=== PATIENT | female | born 1970 | race Caucasian/White ===

== ENCOUNTER 2016-09-27 13:54 | Outpatient (RCR) | payer MEDICARE, MEDICAID ==
[~2016-09-27 13:54] MED LIST: CELEXA 20MG20 MG/TAB PO; CELEXA10 MG PO; CLEOCIN HC150 MG/CAP PO; COLACE 100100 MG/CAP PO; DEPAKOTE 250MG250 MG PO; DEPAKOTE ER 25250 MG PO; DILANTIN 100MG100 MG PO; LASIX 20MG TABL20 MG PO; LASIX 40MG TABL40 MG PO; NORCO 325 MG-51 TAB PO; NYSTATIN POWDER30 GM TOP; PREMARIN 0.60.625 MG PO; TYLENOL ARTHRI650 M1 PO; TYLENOL W/COD1 UDTAB PO; VESICARE10 MG PO
== END 2016-12-26 ==
LOC: MKS.ESL.PT
DX: R60.0 Localized edema (principal); Z87.2 Personal history of diseases of the skin and subcutaneous tissue
CPT/HCPCS: G8979-GP; G8990-GP

== ENCOUNTER 2019-06-03 10:00 | Outpatient (RCR) | payer MEDICARE, MEDICAID | END 2019-07-24 | disposition home or self-care (01) | LOC: MKS.ESL.PT | DX: L03.119 Cellulitis of unspecified part of limb (principal) ==

== ENCOUNTER 2020-02-03 10:48 | Emergency (ER) | payer MEDICARE, MEDICAID ==
[~2020-02-03] VITALS: Ht 170.2 cm; Wt 136.4 kg
[2020-02-03 10:52] VITALS: TEMP 97.8
[2020-02-03] MEDS ORDERED: KLOR-CON SPRINK8 MEQ PO (11:09)
[2020-02-03] MEDS ORDERED: VITAMINC250CH (11:10)
[2020-02-03] MEDS ORDERED: ZAROXOLYN5 MG PO (11:10)
[2020-02-03] MEDS ORDERED: VITAMIN D31000 I1 PO (11:10)
[2020-02-03] MEDS ORDERED: CELEXA10 MG PO (11:11)
[2020-02-03] MEDS ORDERED: SLOW FE142 MG PO (11:11)
[2020-02-03] MEDS ORDERED: ALDACTONE50 MG PO (11:12)
[2020-02-03] MEDS ORDERED: DEPAKOTE ER 25250 MG PO (11:12)
[2020-02-03] MEDS ORDERED: TYLENOL 325MG325 MG PO (11:13)
[2020-02-03] MEDS ORDERED: MYCOSTATIN100000 U/1 TP (11:13)
[2020-02-03] MEDS ORDERED: NORCO 325 MG-51 TAB PO (13:13)
[2020-02-03 13:30] VITALS: BP 124/71; PULSE 95
== END 2020-02-03 13:30 | disposition home or self-care (01) ==
LOC: COL.ER 10:48
DX: S92.402A Displaced unspecified fracture of left great toe, initial encounter for closed fracture (principal); S01.01XA Laceration without foreign body of scalp, initial encounter; S60.221A Contusion of right hand, initial encounter; R40.2410 Glasgow coma scale score 13-15, unspecified time; Z88.0 Allergy status to penicillin; V59.60XA Unspecified occupant of pick-up truck or van injured in collision with unspecified motor vehicles in traffic accident, initial encounter; Y92.410 Unspecified street and highway as the place of occurrence of the external cause
CPT/HCPCS: J2270; Q9967

== ENCOUNTER 2020-06-18 12:31 | Inpatient (IN) | payer MEDICARE, MEDICAID ==
[~2020-06-18] VITALS: Ht 170.2 cm; Wt 145.5 kg
[~2020-06-18 12:31] MED LIST changes: +ALDACTONE50 MG PO; +KLOR-CON SPRINK8 MEQ PO; +MYCOSTATIN100000 U/1 TP; +SLOW FE142 MG PO; +TYLENOL 325MG325 MG PO; +VITAMIN D31000 I1 PO; +VITAMINC250CH PO; +ZAROXOLYN5 MG PO
[2020-06-18 12:56] LABS: COLLECTION METHOD CATHETER
[2020-06-18 13:00] LABS: MUCOUS Present /lpf; PH 7 (5-8); SQUAMOUS EPITHELIAL 0-2 /hpf; URINE APPEARANCE Hazy; URINE BACTERIA Rare /hpf; URINE BILIRUBIN Negative (NEGATIVE); URINE BLOOD Negative (NEGATIVE); URINE COLOR Yellow; URINE GLUCOSE Negative (NEGATIVE); URINE KETONE 1+ (NEGATIVE); URINE LEUKOCYTE ESTERASE 1+ (NEGATIVE); URINE NITRATE Negative (NEGATIVE); URINE PROTEIN(semi-quant) Negative (NEGATIVE)
[2020-06-18 13:12] LABS: BASO % 0.3 % (0.0-2.0); EOS % 0.4 % (0-4.0); GRAN # 5.7 (1.4-6.5); GRAN % 79.3 % (42.2-75.2); HEMOGLOBIN 11.2 g/dl (12.5-16.0); LYMPH # 0.7 (1.2-3.4); LYMPH % 9.5 % (20.0-51.0); MEAN CELL VOLUME 92 fl (80.0-100.0); MEAN CORPUSCULAR HEMOGLOBIN 29 pg (27.0-31.0); MEAN CORPUSCULAR HGB CONC 32 g/dl (33.0-37.0); MEAN PLATELET VOLUME 10.7 fl (7.4-10.4); MONO # 0.7 (0.1-0.6); MONO % 10.1 % (1.7-9.3); PLATELET COUNT 277 K/mm3 (130-400); RED BLOOD COUNT 3.88 M/mm3 (4.10-5.30); REDCELL DISTRIBUTION WIDTH-CV 16.4 % (11.5-14.5)
[2020-06-18 13:16] LABS: HEMATOCRIT 35.5 % (37.0-47.0)
[2020-06-18 13:21] LABS: BLOOD UREA NITROGEN 26 mg/dL (7-17); CREATININE, serum 0.71 (0.52-1.25); GLUCOSE 106 mg/dL (74-106)
[2020-06-18 13:22] LABS: ALANINE AMINOTRANSFERASE 12 U/L (4-34); ALBUMIN 3.4 gm/dL (3.5-5.0); ALKALINE PHOSPHATASE 120 U/L (50-136); ANION GAP 12 mmol/L (7-16); AST,SGOT 24 U/L (15-37); BILIRUBIN,TOTAL 0.8 mg/dL (0.0-1.0); CALCIUM 9.1 mg/dL (8.4-10.2); CARBON DIOXIDE 26 mmol/L (22-30); CHLORIDE 101 mmol/L (98-107); SODIUM 138 mmol/L (137-145)
[2020-06-18 13:23] LABS: POTASSIUM 2.8 mmol/L (3.4-5.0)
[2020-06-18 13:34] LABS: TROPONIN-I < 0.012 ng/mL (0.000-0.035)
--- NOTE | 2020-06-18 14:50 | NUR ---
The patient's ED nurse contacted this [employer] regarding the patient. The patient was brought to the ED and found that the patient may have been sitting in her recliner for two weeks. Per nurse the patient's bottom was raw and had cellulitis, both feet were swollen and cold due to lack of circulation. BRANDI made APS report. Intake # [id number]
[2020-06-18] MEDS ORDERED: SYNTHROID 0.0.025 MG PO (15:33)
[2020-06-18] MEDS ORDERED: ALDACTONE 25MG25 M1 PO (15:34)
[2020-06-18] MEDS ORDERED: DITROPAN XL10 MG PO (15:34)
--- NOTE | 2020-06-18 15:34 | NUR ---
Peggy Arlene. from [facility] contacted this Dip Stand Loader regarding the patient's mother, Roz and her father, Fuad. They both reside at [facility], have DPOA-HCs, they are cognitavely impaired. Peggy requested a patient update so she could pass it along to Roz and Fuad. The patient was still in the ED, SW did not have an update at this time. The patient receives services from [facility]. BRANDI contacted Leeanne at [facility]. Leeanne reports the point of contact for the patient is the her uncle, Derek Hall # . BRANDI contacted Derek and he confirms he is DPOA-HC for the patient's mother and father. Derek is Roz's brother. SOPHIA Luong Worker contacted this Dip Stand Loader regarding the patient. Cherise reports that she will visit the patient this day. BRANDI collaborated the above information to the patient's nurse.
--- NOTE | 2020-06-18 16:05 | NUR ---
PATIENT ARRIVED TO ROOM 346 FROM RADIOLOGY. PATIENT SETTELED INTO ROOM. CALL LIGHT WITHIN REACH.
[2020-06-18 16:15] LABS: MAGNESIUM 2.3 mg/dL (1.6-2.3)
[2020-06-18 16:16] LABS: INR 1.1 (0.8-3.0); PROTHROMBIN TIME 12.5 SECONDS (9.7-12.8)
[2020-06-18 16:19] LABS: PARTIAL THROMBOPLASTIN TIME 30.7 SECONDS (26.0-37.0)
--- NOTE | 2020-06-18 17:30 | NUR ---
TELE CALLED CHARGE NURSE REPORTING PATIENT NOT ON TELE. UPON ASSESSING TELE, ALL LEAD WERE INPLACE HOWEVER, TELE BOX DID NOT HAVE ANY BATTERIES. TELE NOTIFIED AND BATTERIES PLACED. PATIENT HR IN THE 70'S ON TELE.
--- NOTE | 2020-06-18 17:48 | NUR ---
PATIENT HOME MEDICATIONS AND PRN TYLENOL GIVEN AT THIS TIME. HEPARIN BOLUS GIVEN AND HEPARIN DRIP STARTED AT 23ML/HR PER PROTOCOL. WOUND CULTURE COLLECTED AND SENT TO LAB. METZGER CATHETER TO DEPENDENT DRAINAGE. CALL LIGHT WITHIN REACH. NO ADDITIONAL NEEDS AT THIS TIME.
--- NOTE | 2020-06-18 19:00 | NUR ---
PATIENT SAT UP FOR DINNER. CALL LIGHT WITHIN REACH. PATIENT REPORT GIVEN TO YOEL NELSON.
[2020-06-18 19:11] VITALS: BP 138/59; PULSE 79; TEMP 98
--- NOTE | 2020-06-18 21:00 | NUR ---
Patient given a complete bed bath and clean linens. Patient's bottom is red and she has bilateral lower extremity edema and redness. Patient's breasts are tender and red with cellulitis. Nyastatin applied under breasts and moisture wicking fabric was placed. Pollack catheter draining clear yellow urine.
[2020-06-18 23:51] VITALS: BP 141/59; PULSE 79; TEMP 97
--- NOTE | 2020-06-19 00:20 | NUR ---
Hep XA was critical at 1.78. Heparin drip stopped. Order for a recheck at 0300.
[2020-06-19 03:55] VITALS: BP 139/59; PULSE 97; TEMP 97
[2020-06-19 07:01] LABS: HEMOGLOBIN 10.6 g/dl (12.5-16.0); MEAN CELL VOLUME 95 fl (80.0-100.0); MEAN CORPUSCULAR HEMOGLOBIN 29 pg (27.0-31.0); MEAN CORPUSCULAR HGB CONC 31 g/dl (33.0-37.0); MEAN PLATELET VOLUME 11.8 fl (7.4-10.4); PLATELET COUNT 246 K/mm3 (130-400); RED BLOOD COUNT 3.62 M/mm3 (4.10-5.30); REDCELL DISTRIBUTION WIDTH-CV 16.9 % (11.5-14.5)
[2020-06-19 07:03] LABS: HEMATOCRIT 34.3 % (37.0-47.0)
[2020-06-19 07:05] LABS: CALCIUM 8.4 mg/dL (8.4-10.2); CREATININE, serum 0.75 (0.52-1.25); POTASSIUM 3.4 mmol/L (3.4-5.0)
--- NOTE | 2020-06-19 07:28 | NUR ---
Spoke with Lissette in Pharmacy. Heparin drip reviewed. Rate changed per protocol. Discussed with Nakita DIALLO.
[2020-06-19 08:29] VITALS: BP 124/48; PULSE 81; TEMP 98
--- NOTE | 2020-06-19 08:45 | NUR ---
Patient repostioned in bed. Breakfast ordered. She reports being hungery, denies nausea. bed bath given. Pollack cares provided. Patient had elevated pain with movement, tylenol given. Heparin drip per orders. Ble heel protectors placed & Ble elvated on pillows. Spoke to Norma about getting power vs cream for excoriation. boatbuilder supervisor notifed & she got the moister wicking fabric for patient. Will let patient eat & then use the powder & fabric, to prevent furth skin breakdown. Will monitor.
[2020-06-19 12:17] VITALS: BP 93/47; PULSE 77; TEMP 98.2
--- NOTE | 2020-06-19 12:30 | NUR ---
Hospitalist rounded. Plan of care reviewed. Below breast washed with soap & water, dried throughly. Nystain applied liberally & interdry beneath breast per orders. Patient had a very large loose liquid BM. Extensive pericare provided-new linens provided. Lunch ordered. Pain meds per orders for elevated pain after movement. Will monitor.
[2020-06-19 15:42] VITALS: BP 89/38; PULSE 73; TEMP 98.1
--- NOTE | 2020-06-19 15:57 | NUR ---
Norma Love made aware of patient Bp being low. She made medications adjustments. Patient pain is better managed after Paul, but she has been sleepy. Heparin drip continues to infuse per orders. Dinner orders.
--- NOTE | 2020-06-19 17:18 | NUR ---
Patient using bedpan. 2 assist.
--- NOTE | 2020-06-19 19:18 | NUR ---
Heparin drip stopped, critical High Hep XA. Patient drip to be stopped and inital dose of eliquis to be given by [place] night nurse. Patient tolerated dinner.
[2020-06-19 19:23] VITALS: BP 100/48; PULSE 73; TEMP 98.3
--- NOTE | 2020-06-19 22:27 | NUR ---
Patient resting in bed. Night medications given. Patient's breasts washed with soap and water and dried with a towel. Nystatin put under the folds and an interdry was placed. Patient's breasts and legs are very tender.
[2020-06-20] VITALS (7 sets, daily range): BP systolic 93–134; BP diastolic 47–60; PULSE 71–84; TEMP 97.9–98.5
--- NOTE | 2020-06-20 06:03 | NUR ---
Patient complaining of pain this morning. PRN ultram administered. No other needs at this time.
[2020-06-20 06:24] LABS: BASO % 0.2 % (0.0-2.0); EOS # 0.1 (0.0-0.7); GRAN # 3.5 (1.4-6.5); GRAN % 65.8 % (42.2-75.2); HEMOGLOBIN 10.6 g/dl (12.5-16.0); LYMPH # 1.1 (1.2-3.4); LYMPH % 19.5 % (20.0-51.0); MEAN CELL VOLUME 94 fl (80.0-100.0); MEAN CORPUSCULAR HEMOGLOBIN 29 pg (27.0-31.0); MEAN CORPUSCULAR HGB CONC 31 g/dl (33.0-37.0); MEAN PLATELET VOLUME 11.7 fl (7.4-10.4); MONO # 0.7 (0.1-0.6); MONO % 12.1 % (1.7-9.3); PLATELET COUNT 251 K/mm3 (130-400); RED BLOOD COUNT 3.67 M/mm3 (4.10-5.30); REDCELL DISTRIBUTION WIDTH-CV 17.2 % (11.5-14.5)
[2020-06-20 06:26] LABS: HEMATOCRIT 34.3 % (37.0-47.0)
[2020-06-20 06:29] LABS: CALCIUM 8.6 mg/dL (8.4-10.2); CREATININE, serum 0.76 (0.52-1.25)
--- NOTE | 2020-06-20 07:00 | NUR ---
Lying in bed with eyes open. Patient is alert and oriented as she is able to be. Patient says that she has pain in her breast area and her legs when they are touched. Bruising noted to upper extremities. Under bilat breasts are red, cellulitic, tender to touch. Discuss with the patient that we will clean under her breasts and apply medication and new moisture wicking dressing later this morning. Groin red, bottom red. Pollack to dependent drainage with clear yellow urine. Bilat lower extremities with 2+ edema, tender when legs are touched. Right second and fifth toes noted to have black areas on toes. Heel protectors are on. Patient denies additional needs or concerns at this time.
--- NOTE | 2020-06-20 11:49 | NUR ---
Patient having increase of pain in breasts and legs, describes as soreness, and would like pain medication. Will administer Tramadol as prescribed. Patient denies additional needs.
--- NOTE | 2020-06-20 12:54 | NUR ---
Lying in bed with eyes open. Patient says that it feels like it is a little wet from urine under her bottom. Clear yellow urine now in cannister on wall from Purewick. Patient has small area that is wet on chux, changed at this time. Purewick repositioned. Offer patient to roll on her side and patient says "no". Patient denies additional needs or concerns at this time.
--- NOTE | 2020-06-20 13:36 | NUR ---
SW working on DC plan to facilitate patient going to a skilled placment. SW met with patient about her care. Patient reports that she does not know any contact numbers and is unaware who helps with decisions. SW contacted Hola King manager service desk who stated that the Nurse major case detective would help Jose HERNANDEZ at [phone]. Ms. Hernandez reports that the patient is considered a guardian to herself even with the cognitive delays. Has an uncle who is POA that set the patient up with Home health however this is not enough supports. SW contact Derek at [phone] he reports that he does not have legal POA. Derek reports that patient sits in a chair all day and BLDC is the support process but patient is not able to make decision. Derek indicated that we should tell her that he said to do this and I educated him that this is not how that works. Escaleted to dann for supports.
--- NOTE | 2020-06-20 17:29 | NUR ---
Lying in bed watching TV. Boyfriend at bedside. Has ordered dinner and should arrive around 1800. Minimal pain at this time. Has purewick in place. Denies additional needs at this time.
--- NOTE | 2020-06-20 21:00 | NUR ---
Patient cleaned up and nystatin applied in breast folds. Interdry put in place. Patient has purewick catheter. Patient given ultram for pain. No other needs at this time. Call light in reach.
[2020-06-21 03:58] VITALS: BP 122/50; PULSE 83; TEMP 97.3
[2020-06-21 07:39] VITALS: BP 147/64; PULSE 75; TEMP 98
--- NOTE | 2020-06-21 07:49 | NUR ---
Patient resting in bed. Repositioned in bed to sit up for breakfast. Patient provided with extensive pericare, new purwick placed. new chucks underneath patient. Reviewed with her importance of repositioning to prevent further skin breakdown. Benneth breast cleansed with soap & water, nystain applied & new interdry cloth per orders. Patient skin breakdown does appear to be improving from prior shift that I cared for paitient. Patient was medicated with Ultram for pain this am per request. Will monitor.
--- NOTE | 2020-06-21 08:47 | NUR ---
Hospitalist rounded. Plan of care reviewed. She verified, no need to recheck K+ today because potassium was 4.0 yesterday. Patient repositioned in bed. Apple juice provided per her request. She did well with breakfast.
--- NOTE | 2020-06-21 09:40 | NUR ---
SW met with the patient to follow up after the weekend and to discuss PT's recommendation for SNF/post-acute rehab. The patient states that she was receiving services from [facility] prior to hospitalization and that her PCP is Dr. Purvis. SW discussed post-acute rehab upon discharge. The patient was agreeble for SW to send referrals. BRANDI contacted and faxed a referral to [facility], [facility], [facility], [facility], and [facility]. Awaiting screens. BRANDI also addressed a DPOA-HC with the patient. The patient started talking about her families DPOA-HC. SW had a difficult time re-directing her back to her own DPOA-HC and explaining what a DPOA-HC is. BRANDI contacted Rona at [facility] and confirmed the patient has services through them and her PCP. BRANDI attempted to contact YOEL Lynnfacsimile operator, with Dr. Purvis's office to inquire if they have a DPOA-HC on file. SW left her a voicemail. *Discharge plan: Awaiting acceptance at a SNF*
--- NOTE | 2020-06-21 10:58 | NUR ---
Patient up in chair. Therapy used sit to stand lift. She tolerated fairly well. Follwed instructions well. I assisted patient to wash her hair using soap & water towels & a basin. I combed her hair and got rid of the knots. She tolerated well, but combing the knots in her hair was painful. Patient was given bed bath & linens changed. Will monitor.
--- NOTE | 2020-06-21 11:17 | NUR ---
BRANDI contacted Derek Hall (ph#[phone]) to review d/c plan. Derek reports that he is the patient's uncle. The patient is not , has no children, and her parents are at [address] and Derek states that her parents are incapacitated. Derek reports that his brother is an prosecuting attorney and they are going to initiate a DPOA-HC through [facility] for the patient. BRANDI updated him about post-acute rehab and the referrals sent. Derek was agreeable to the plan. SW to continue to follow.
[2020-06-21 11:22] VITALS: BP 116/55; PULSE 75; TEMP 97.2
--- NOTE | 2020-06-21 12:03 | NUR ---
Patietn sitting up in chair, eating lunch. Salad dressing provided. Tylenol Prn for pain. Denies other needs at this time
--- NOTE | 2020-06-21 12:25 | NUR ---
Mindy, at [facility], reports that they will follow the patient. Mindy reports that they would require a DPOA-HC to be able to take the patient.
--- NOTE | 2020-06-21 12:45 | NUR ---
First visit from the toy assembler. No needs right now.
--- NOTE | 2020-06-21 15:22 | NUR ---
Data Center Operator was contacted by Korin at [facility]. Korin advised that they could possibly take but may need patient to have DPOA-HC before they can accept. Korin also inquired about purwick catheter and if patient would be discharged with that. SW contacted Zari at [facility] who advised they may not have bed availability for patient but Zari would double check.
[2020-06-21 15:49] VITALS: BP 117/49; PULSE 68; TEMP 97.7
--- NOTE | 2020-06-21 18:01 | NUR ---
Patient back to bed. Sit to stand lift used. Pericare provided. New eveck. Patient sat up for dinner and tolerated well. Ultram for pain.
--- NOTE | 2020-06-21 19:05 | NUR ---
Patient sleeping. Bedside report to Margarita
[2020-06-21 19:11] VITALS: BP 110/60; PULSE 67; TEMP 97.6
[2020-06-21 23:54] VITALS: BP 104/60; PULSE 70; TEMP 97.3
[2020-06-22] VITALS (7 sets, daily range): BP systolic 103–131; BP diastolic 49–67; PULSE 67–83; TEMP 96–98.1
--- NOTE | 2020-06-22 03:40 | NUR ---
PATIENT AWAKE THROUGHOUT MOST OF THE SHIFT. PRN PAIN MEDICATION ADMINISTERED REQUESTED BY PATIENT PER DRJenelle'S ORDERS. PATIENT VERY PLEASANT AND COOPERATIVE. NO NEW ISSUES NOTED OR REPORTED BY PATIENT.
[2020-06-22 06:48] LABS: BASO % 0.4 % (0.0-2.0); EOS # 0.3 (0.0-0.7); EOS % 4.6 % (0-4.0); GRAN # 5.1 (1.4-6.5); GRAN % 71.3 % (42.2-75.2); HEMATOCRIT 38.9 % (37.0-47.0); LYMPH # 1.1 (1.2-3.4); LYMPH % 14.7 % (20.0-51.0); MEAN CELL VOLUME 96 fl (80.0-100.0); MEAN CORPUSCULAR HEMOGLOBIN 30 pg (27.0-31.0); MEAN CORPUSCULAR HGB CONC 31 g/dl (33.0-37.0); MEAN PLATELET VOLUME 11.5 fl (7.4-10.4); MONO # 0.6 (0.1-0.6); MONO % 8.6 % (1.7-9.3); PLATELET COUNT 289 K/mm3 (130-400); RED BLOOD COUNT 4.06 M/mm3 (4.10-5.30); REDCELL DISTRIBUTION WIDTH-CV 17.6 % (11.5-14.5)
[2020-06-22 07:01] LABS: CALCIUM 8.9 mg/dL (8.4-10.2); CREATININE, serum 0.73 (0.52-1.25); POTASSIUM 4.1 mmol/L (3.4-5.0)
--- NOTE | 2020-06-22 11:13 | NUR ---
Mitch, at [facility], reports that they are able to accept the patient for a skilled stay. BRANDI updated the patient's PA. BRANDI contacted and updated the patient's uncle, Derek. He was agreeable for the patient to go to [facility]. SW to inform the patient.
--- NOTE | 2020-06-22 11:34 | NUR ---
SW met with the patient to update. The patient verbalized that she is okay with going to [facility] upon discharge.
--- NOTE | 2020-06-22 16:04 | NUR ---
Mitch, at [facility], reports that they would require a DPOA-HC prior to admission. BRANDI updated the patient's uncle, Derek. Derek reports that his brother, Fernando, who is an deputy commonwealth's attorney, was working on drawing up the paperwork for this. Derek reports that they will try and get the DPOA-HC to later today or tomorrow morning. BRANDI provided Derek with 's email address and phone number. BRANDI contacted and updated APS Worker, Cherise, of the d/c plan. Hola, at [facility], reports that they have declined the patient.
--- NOTE | 2020-06-22 16:46 | NUR ---
BRANDI met with the patient and had her uncle, Derek, was on speaker phone. BRANDI and Derek discussed the DPOA-HC again and what that would mean to the patient. The patient would like to designate her uncle Derek and verbalized that he would maked decisions for her if she cannot. She designated her other uncle, Fernando, as the alternate, and her uncle, Shivam, as the second alternate. BRANDI and MECHANICAL MANAGERRuthie, witnessed the patient's signature. BRANDI provided the original to the patient and emailed a copy to Derek. BRANDI placed a copy in the patient's chart and faxed a copy to [facility].
--- NOTE | 2020-06-22 18:59 | NUR ---
Patient resting in bed at this time. Purwick in place, moderate amount of clear yellow urine in cannister. Area under bilateral breasts remains excoriated and is painful to touch. Area was gently washed and thouroughly dried, dressings placed under breasts per order. Patient denies further needs, call light within reach.
[2020-06-23 03:54] VITALS: BP 137/61; PULSE 72; TEMP 98.6
--- NOTE | 2020-06-23 06:09 | NUR ---
PATIENT AWAKE MOST OF THE SHIFT. NO NEW ISSUES NOTED OR REPORTED BY PATIENT.
[2020-06-23 06:17] LABS: CALCIUM 9.1 mg/dL (8.4-10.2); CREATININE, serum 0.77 (0.52-1.25); POTASSIUM 4.3 mmol/L (3.4-5.0)
[2020-06-23 06:20] LABS: BASO % 0.4 % (0.0-2.0); EOS # 0.3 (0.0-0.7); EOS % 3.9 % (0-4.0); GRAN # 5.5 (1.4-6.5); HEMOGLOBIN 12.4 g/dl (12.5-16.0); LYMPH # 1.2 (1.2-3.4); LYMPH % 14.8 % (20.0-51.0); MEAN CELL VOLUME 95 fl (80.0-100.0); MEAN CORPUSCULAR HEMOGLOBIN 29 pg (27.0-31.0); MEAN CORPUSCULAR HGB CONC 31 g/dl (33.0-37.0); MONO # 0.7 (0.1-0.6); MONO % 9.4 % (1.7-9.3); PLATELET COUNT 333 K/mm3 (130-400); RED BLOOD COUNT 4.23 M/mm3 (4.10-5.30); REDCELL DISTRIBUTION WIDTH-CV 17.7 % (11.5-14.5)
--- NOTE | 2020-06-23 07:34 | NUR ---
Patient repostioned in bed for breakfast. Breakfst ordered, she denies nausea. She brushed her teeth. Benneath breast cleansed with soap & water, nystatin cream used per orders & interdry cloth applied. Ble elevated with pillows & heel protectors on. Int x2. Purewick in place. Ultram for pain. Will kaylyn.
[2020-06-23 07:50] VITALS: BP 141/66; PULSE 61; TEMP 97.6
[2020-06-23] MEDS ORDERED: DIFLUCAN150 MG PO (09:04)
[2020-06-23] MEDS ORDERED: ELIQUIS 5MG PO (09:05)
[2020-06-23] MEDS ORDERED: ULTRAM 50MG TAB50 MG PO (09:06)
[2020-06-23] MEDS ORDERED: TYLENOL 325MG325 MG PO (09:06)
--- NOTE | 2020-06-23 09:06 | NUR ---
Hospitalsit team rounded. Socail work assisting with discharge planning.
[2020-06-23] MEDS ORDERED: DULCOLAX STOOL100 MG PO (09:07)
[2020-06-23] MEDS ORDERED: OMNICEF 300MG300 MG PO (09:14)
[2020-06-23] MEDS ORDERED: FLAGYL500 MG PO (09:15)
[2020-06-23 09:17] VITALS: BP 141/66; PULSE 61; TEMP 97.6
--- NOTE | 2020-06-23 11:12 | NUR ---
The patient is to discharge today, 06/23, to [facility] for a skilled stay. Transportation was scheduled at 1430, via [facility]. BRANDI informed the patient, her RN, and the patient's uncle (Derek) over the phone. They were all agreeable to the time. BRANDI also read the IM form outloud to Derek over the phone. Derek verbalized understanding and gave BRANDI approval to sign the form on his behalf. BRANDI updated Cherise APS kimberly and Ruth with [facility]. BRANDI attempted to updated the patient's transit survey worker at . BRANDI left her a voicemail. No additional needs at this time.
--- NOTE | 2020-06-23 11:39 | NUR ---
Lunch ordered. Plan of care reviewed. Will monitor.
[2020-06-23 11:49] VITALS: BP 131/62; PULSE 71; TEMP 97.5
--- NOTE | 2020-06-23 13:52 | NUR ---
Patient ready for discharge. Dressed and given bed bath lotion to skin. Full report called to via bernadette boles and all questions answered. Patient tolerated lunch. Ultram for pain prior to discharge.
--- NOTE | 2020-06-23 14:55 | NUR ---
Patient up to wheelchair with sit to stand lift for discharge, pericare provided. Brief on. She did well using lift. Pain managed. Elida with [facility] transport taking her with all belongings.
--- NOTE | 2020-06-24 16:13 | NUR ---
BRANDI attempted to contact [facility] complaint hotline to leave a report. BRANDI was able to leave a voicemail this time.
--- NOTE | 2020-06-25 10:46 | NUR ---
Jackie Quintero, [facility] returned BRANDI's phone call. BRANDI made a report. Jackie reports that she does not have a report # for at this time. She states that she has to write the report up in a document and then sends the information to Michelle Dao who is the state person for [facility].
== END 2020-06-23 14:55 | DRG 300 ==
LOC: COL.ER 12:31 → SURG 14:19
PROVIDERS: Family Medicine; Physician Assistant
DX: I82.4Z3 Acute embolism and thrombosis of unspecified deep veins of distal lower extremity, bilateral (principal); L03.115 Cellulitis of right lower limb; N39.0 Urinary tract infection, site not specified; E66.9 Obesity, unspecified; F32.9 Major depressive disorder, single episode, unspecified; I10 Essential (primary) hypertension; E03.9 Hypothyroidism, unspecified; G40.909 Epilepsy, unspecified, not intractable, without status epilepticus; R62.7 Adult failure to thrive; Z20.822 Contact with and (suspected) exposure to COVID-19; F79 Unspecified intellectual disabilities; I95.9 Hypotension, unspecified; I89.0 Lymphedema, not elsewhere classified; R53.81 Other malaise; N61.0 Mastitis without abscess; B96.89 Other specified bacterial agents as the cause of diseases classified elsewhere; E87.6 Hypokalemia; N32.81 Overactive bladder; Z90.710 Acquired absence of both cervix and uterus; Z90.89 Acquired absence of other organs
CPT/HCPCS: 99223-AI; 99232-AI; 99233-AI; 99239; J0696; J1644; J1940; J3370; J7030; J7050; Q9967

== ENCOUNTER → 2020-07-02 | Outpatient (REF) ==
[~2020-07-02] MED LIST changes: +ALDACTONE 25MG25 M1 PO; +DIFLUCAN150 MG PO; +DITROPAN XL10 MG PO; +DULCOLAX STOOL100 MG PO; +ELIQUIS 5MG PO; +FLAGYL500 MG PO; +OMNICEF 300MG300 MG PO; +SYNTHROID 0.0.025 MG PO; +ULTRAM 50MG TAB50 MG PO
[2020-07-02 13:32] LABS: HEMATOCRIT 41.6 % (37.0-47.0); HEMOGLOBIN 12.7 g/dl (12.5-16.0); MEAN CELL VOLUME 95 fl (80.0-100.0); MEAN CORPUSCULAR HEMOGLOBIN 29 pg (27.0-31.0); MEAN CORPUSCULAR HGB CONC 31 g/dl (33.0-37.0); MEAN PLATELET VOLUME 10.5 fl (7.4-10.4); PLATELET COUNT 391 K/mm3 (130-400); RED BLOOD COUNT 4.39 M/mm3 (4.10-5.30); REDCELL DISTRIBUTION WIDTH-CV 17.4 % (11.5-14.5)
== END ==
LOC: ZLAB.STJ 13:25
DX: I82.493 Acute embolism and thrombosis of other specified deep vein of lower extremity, bilateral (principal)

== ENCOUNTER → 2020-07-13 | Outpatient (REF) | LOC: ZLAB.STJ 11:16 | DX: E03.9 Hypothyroidism, unspecified (principal) ==

== ENCOUNTER → 2020-09-30 | Outpatient (CLI) | payer MEDICARE, MEDICAID ==
[2020-09-30 14:07] LABS: PHENYTOIN (DILANTIN) 4.5 ug/mL (10.0-20.0)
[2020-09-30 14:09] LABS: VALPROIC ACID (DEPAKENE) 61.3 ug/mL (50.0-100.0)
== END ==
LOC: ZLAB.STJ 12:57
DX: G40.89 Other seizures (principal); E55.9 Vitamin D deficiency, unspecified

== ENCOUNTER → 2020-10-11 | Outpatient (REF) | LOC: ZLAB.STJ 10:10 | DX: E03.9 Hypothyroidism, unspecified (principal) ==

== ENCOUNTER → 2020-10-18 | Outpatient (CLI) | payer MEDICARE, MEDICAID | LOC: ZLAB.STJ 16:13 | DX: G40.89 Other seizures (principal) ==

== ENCOUNTER → 2020-10-25 | Outpatient (REF) | LOC: ZLAB.STJ 11:39 | DX: G40.89 Other seizures (principal) ==

== ENCOUNTER → 2020-11-08 | Outpatient (REF) | LOC: ZLAB.STJ 12:40 | DX: Z51.81 Encounter for therapeutic drug level monitoring (principal) ==

== ENCOUNTER → 2020-11-09 | Outpatient (CLI) | payer MEDICARE, MEDICAID | LOC: ZLAB.STJ 12:43 | DX: G40.89 Other seizures (principal) ==

== ENCOUNTER → 2020-11-26 | Outpatient (CLI) | payer MEDICARE, MEDICAID | LOC: ZLAB.STJ 15:24 | DX: G40.89 Other seizures (principal) ==

== ENCOUNTER → 2020-12-23 | Outpatient (CLI) | payer MEDICARE, MEDICAID ==
[2020-12-23 18:53] LABS: VALPROIC ACID (DEPAKENE) 64.8 ug/mL (43.5-90.5)
== END ==
LOC: ZLAB.STJ 15:15
PROVIDERS: Internal Medicine
DX: G40.89 Other seizures (principal)

== ENCOUNTER → 2020-12-31 | Outpatient (CLI) | payer MEDICARE, MEDICAID ==
[2021-01-04 09:50] LABS: DILANTIN FREE (ONLY) XXX
== END ==
LOC: COL.LAB 11:48
PROVIDERS: Psychiatry & Neurology Neurology
DX: G40.89 Other seizures (principal)

== ENCOUNTER → 2021-01-04 | Outpatient (CLI) | payer MEDICARE, MEDICAID | LOC: COL.RAD 11-18 10:30 | DX: M50.30 Other cervical disc degeneration, unspecified cervical region (principal); M48.02 Spinal stenosis, cervical region; G40.909 Epilepsy, unspecified, not intractable, without status epilepticus ==

== ENCOUNTER → 2021-01-10 | Outpatient (CLI) | payer MEDICARE, MEDICAID | LOC: ZLAB.STJ 18:16 | DX: E03.9 Hypothyroidism, unspecified (principal) ==

== ENCOUNTER → 2021-04-06 | Outpatient (CLI) | payer MEDICARE, MEDICAID ==
[2021-04-06 15:23] LABS: ALBUMIN 3.4 gm/dL (3.5-5.0); BILIRUBIN,TOTAL 0.3 mg/dL (0.2-1.2); CREATININE, serum 0.87 mg/dL (0.57-1.11); MAGNESIUM 2.2 mg/dL (1.6-2.6); POTASSIUM 3.2 mmol/L (3.5-4.5); TOTAL PROTEIN 7.7 gm/dL (6.2-8.1)
== END ==
LOC: ZLAB.STJ 13:29
PROVIDERS: Internal Medicine
DX: E83.40 Disorders of magnesium metabolism, unspecified (principal); R79.89 Other specified abnormal findings of blood chemistry

== ENCOUNTER → 2021-04-12 | Outpatient (CLI) | payer MEDICARE, MEDICAID | LOC: ZLAB.STJ 21:41 | DX: R73.9 Hyperglycemia, unspecified (principal); I10 Essential (primary) hypertension ==

== ENCOUNTER → 2021-04-20 | Outpatient (CLI) | payer MEDICARE, MEDICAID ==
[2021-04-20 10:12] LABS: BASO % 0.7 % (0.0-2.0); EOS # 0.1 K/mm3 (0.0-0.7); EOS % 1.8 % (0.0-4.0); GRAN % 66.1 % (42.2-75.2); HEMOGLOBIN 14.1 g/dl (12.5-16.0); LYMPH # 1.4 K/mm3 (1.2-3.4); LYMPH % 22.6 % (20.0-51.0); MEAN CELL VOLUME 98 fl (80.0-100.0); MEAN CORPUSCULAR HEMOGLOBIN 31 pg (27-31); MEAN CORPUSCULAR HGB CONC 32 g/dl (33.0-37.0); MEAN PLATELET VOLUME 11.2 fl (7.4-10.4); MONO # 0.5 K/mm3 (0.1-0.6); MONO % 8.6 % (1.7-9.3); PLATELET COUNT 243 K/mm3 (130-400); RED BLOOD COUNT 4.51 M/mm3 (4.10-5.30); REDCELL DISTRIBUTION WIDTH-CV 14.6 % (11.5-14.5)
== END ==
LOC: ZLAB.STJ 09:45
PROVIDERS: Internal Medicine
DX: D50.9 Iron deficiency anemia, unspecified (principal); E03.9 Hypothyroidism, unspecified

== ENCOUNTER → 2021-04-25 | Outpatient (CLI) | payer MEDICARE, MEDICAID ==
[2021-04-25 18:47] LABS: CALCIUM 8.6 mg/dL (8.4-10.2); CREATININE, serum 0.84 mg/dL (0.57-1.11); POTASSIUM 4.2 mmol/L (3.5-4.5)
== END ==
LOC: ZLAB.STJ 18:27
PROVIDERS: Internal Medicine
DX: Z01.89 Encounter for other specified special examinations (principal)

== ENCOUNTER → 2021-04-28 | Outpatient (CLI) | payer MEDICARE, MEDICAID | LOC: COL.CARD 03-08 10:00 | DX: G40.909 Epilepsy, unspecified, not intractable, without status epilepticus (principal); E55.9 Vitamin D deficiency, unspecified; M54.2 Cervicalgia; R20.2 Paresthesia of skin; F81.9 Developmental disorder of scholastic skills, unspecified ==

== ENCOUNTER 2021-05-06 20:17 | Emergency (ER) | payer MEDICARE, MEDICAID ==
[~2021-05-06] VITALS: Ht 157.5 cm; Wt 136.4 kg
[2021-05-06 20:35] VITALS: TEMP 98.1
[2021-05-07 00:15] VITALS: BP 131/69; PULSE 87
== END 2021-05-07 00:15 | disposition home or self-care (01) ==
LOC: COL.ER 20:17
DX: S81.011A Laceration without foreign body, right knee, initial encounter (principal); I10 Essential (primary) hypertension; F32.A Depression, unspecified; E03.9 Hypothyroidism, unspecified; G40.909 Epilepsy, unspecified, not intractable, without status epilepticus; E05.90 Thyrotoxicosis, unspecified without thyrotoxic crisis or storm; E66.9 Obesity, unspecified; Z68.43 Body mass index [BMI] 50.0-59.9, adult; Z79.890 Hormone replacement therapy; Z79.899 Other long term (current) drug therapy; W22.8XXA Striking against or struck by other objects, initial encounter

== ENCOUNTER → 2021-05-18 | Outpatient (CLI) | payer MEDICARE, MEDICAID | LOC: ZLAB.STJ 15:38 | DX: R89.5 Abnormal microbiological findings in specimens from other organs, systems and tissues (principal) ==

== ENCOUNTER 2021-05-19 13:07 | Emergency (ER) | payer MEDICARE, MEDICAID ==
[~2021-05-19] VITALS: Ht 170.2 cm; Wt 90.9 kg
[2021-05-19 13:59] VITALS: TEMP 98.1
[2021-05-19 17:47] LABS: BASO % 0.6 % (0.0-2.0); EOS # 0.1 K/mm3 (0.0-0.7); EOS % 1.3 % (0.0-4.0); GRAN # 4.3 K/mm3 (1.4-6.5); HEMATOCRIT 46.9 % (37.0-47.0); HEMOGLOBIN 15.1 g/dl (12.5-16.0); LYMPH % 15.9 % (20.0-51.0); MEAN CELL VOLUME 97 fl (80.0-100.0); MEAN CORPUSCULAR HEMOGLOBIN 31 pg (27-31); MEAN CORPUSCULAR HGB CONC 32 g/dl (33.0-37.0); MEAN PLATELET VOLUME 10.8 fl (7.4-10.4); MONO # 0.8 K/mm3 (0.1-0.6); PLATELET COUNT 216 K/mm3 (130-400); RED BLOOD COUNT 4.84 M/mm3 (4.10-5.30); REDCELL DISTRIBUTION WIDTH-CV 14.5 % (11.5-14.5)
[2021-05-19 18:10] LABS: ALANINE AMINOTRANSFERASE 23 U/L (0-55); ALBUMIN 3.5 gm/dL (3.5-5.0); ALKALINE PHOSPHATASE 191 U/L (40-150); ANION GAP 13 mmol/L (7-16); AST,SGOT 31 U/L (5-34); BILIRUBIN,TOTAL 0.3 mg/dL (0.2-1.2); BLOOD UREA NITROGEN 20 mg/dL (10-20); CALCIUM 9.4 mg/dL (8.4-10.2); CARBON DIOXIDE 25 mmol/L (22-29); CHLORIDE 101 mmol/L (98-107); CREATININE, serum 0.89 mg/dL (0.57-1.11); GLUCOSE 98 mg/dL (70-99); POTASSIUM 3.7 mmol/L (3.5-4.5); SODIUM 139 mmol/L (136-145); TOTAL PROTEIN 8.3 gm/dL (6.2-8.1)
[2021-05-19 18:17] LABS: TROPONIN-I < 0.010 ng/mL (0.00-0.033)
[2021-05-19 19:56] VITALS: BP 143/92; PULSE 81
== END 2021-05-19 19:56 | disposition home or self-care (01) ==
LOC: COL.ER 13:07
PROVIDERS: Student in an Organized Health Care Education/Training Program
DX: R09.81 Nasal congestion (principal); I10 Essential (primary) hypertension; E05.90 Thyrotoxicosis, unspecified without thyrotoxic crisis or storm; Z20.822 Contact with and (suspected) exposure to COVID-19; Z79.890 Hormone replacement therapy

== ENCOUNTER → 2021-09-23 | Outpatient (CLI) | payer MEDICARE, MEDICAID | LOC: COL.RAD 07:37 | DX: K04.7 Periapical abscess without sinus (principal) ==

== ENCOUNTER → 2021-09-29 | Outpatient (CLI) | payer MEDICARE, MEDICAID | LOC: COL.RAD 10:54 | DX: M19.072 Primary osteoarthritis, left ankle and foot (principal) ==

== ENCOUNTER 2022-04-15 11:27 | Inpatient (IN) | payer MEDICARE, MEDICAID ==
[~2022-04-15] VITALS: Ht 165.1 cm; Wt 136.4 kg
[~2022-04-15 11:27] MED LIST changes: +DOXYCYCLINE 10100 MG PO
[2022-04-15 12:21] LABS: BASO % 0.4 % (0.0-2.0); EOS # 0.2 K/mm3 (0.0-0.7); EOS % 3.5 % (0.0-4.0); GRAN # 3.7 K/mm3 (1.4-6.5); GRAN % 68.9 % (42.2-75.2); HEMATOCRIT 43.2 % (37.0-47.0); HEMOGLOBIN 13.4 g/dl (12.5-16.0); LYMPH % 18.1 % (20.0-51.0); MEAN CELL VOLUME 90 fl (80.0-100.0); MEAN CORPUSCULAR HEMOGLOBIN 28 pg (27-31); MEAN CORPUSCULAR HGB CONC 31 g/dl (33.0-37.0); MEAN PLATELET VOLUME 11.7 fl (7.4-10.4); MONO # 0.5 K/mm3 (0.1-0.6); MONO % 8.9 % (1.7-9.3); PLATELET COUNT 261 K/mm3 (130-400); RED BLOOD COUNT 4.81 M/mm3 (4.10-5.30); REDCELL DISTRIBUTION WIDTH-CV 15.3 % (11.5-14.5)
[2022-04-15 12:45] LABS: ALBUMIN 3.3 gm/dL (3.5-5.0); BILIRUBIN,TOTAL 0.5 mg/dL (0.2-1.2); CALCIUM 9.4 mg/dL (8.4-10.2); CREATININE, serum 0.81 mg/dL (0.57-1.11); POTASSIUM 3.8 mmol/L (3.5-4.5); TOTAL PROTEIN 7.8 gm/dL (6.2-8.1)
[2022-04-15 12:50] LABS: COLLECTION METHOD CLEAN CATCH
[2022-04-15 12:59] LABS: SQUAMOUS EPITHELIAL None Seen /hpf (0-10); URINE BACTERIA None Seen /hpf (NONE SEEN); URINE RBC None Seen /hpf (0-2)
[2022-04-15 13:00] LABS: PH 7.5 (5.0-8.5); URINE APPEARANCE Clear (CLEAR/HAZY); URINE COLOR Colorless (YELLOW)
[2022-04-15 13:01] LABS: URINE BLOOD TRACE-LYSED (NEGATIVE); URINE GLUCOSE Negative (NEGATIVE); URINE KETONE Negative (NEGATIVE); URINE NITRATE Negative (NEGATIVE); URINE PROTEIN(semi-quant) Negative (NEGATIVE); URINE UROBILINOGEN 0.2 E.U/dL (0.2-1.0)
[2022-04-15 14:59] VITALS: BP 130/76; PULSE 72; TEMP 98
[2022-04-15] MEDS ORDERED: K-TAB20 PO (15:59)
[2022-04-15] MEDS ORDERED: KEPPRA1000 MG PO (16:07)
[2022-04-15] MEDS ORDERED: DILANTIN KAPSEA30 MG PO (16:11)
[2022-04-15] MEDS ORDERED: ELIQUIS 5MG PO (16:12)
[2022-04-15] MEDS ORDERED: PEPCID 20MG TAB20 MG PO (16:13)
[2022-04-15] MEDS ORDERED: SALINE 45 ML45 ML NS (16:13)
[2022-04-15] MEDS ORDERED: UBRELVY50 MG PO (16:14)
[2022-04-15] MEDS ORDERED: NORCO 325 MG-51 TAB PO (16:15)
[2022-04-15] MEDS ORDERED: PHENERGAN 25 TA25 MG PO (16:15)
[2022-04-15] MEDS ORDERED: NYSTATIN POWDER15 GM TOP (16:16)
--- NOTE | 2022-04-15 16:30 | NUR ---
Patient to room 317 from the ED by bed. Alert, but confused. Slide board utilized to transfer the patient to medical bed. VSS. IV red/pain with touch. Pollack intact. Nurse oriented the patient to location, room and call light. Patient positioned for comfort. Feet floated on pillow. Seizure precautions in place. Call light within reach
--- NOTE | 2022-04-15 19:00 | NUR ---
THE PATIENT IS CERTAIN THAT A BED FELL ON HER LEG AT [facility]. SHE STATES THAT HER LEGS ARE HOT AND BURNING. THIS PATIENT DOES HAVE SEVERE REDNESS AND SWELLING OF HER BILATERAL LOWER EXTREMITIES. THE REDDNESS IN HER FEET ARE SO SEVERE THEY ALMOST LOOK PURPLE. THERE IS A DEFECT OF BOTH HER SECOND AND THIRD TOES BILATERALLY.
[2022-04-15 20:00] VITALS: BP 101/60; PULSE 78; TEMP 98
--- NOTE | 2022-04-15 22:11 | NUR ---
PT'S DILATIN IS NOT STOCKED IN THE PYXIS AT THIS TIME. CALLED [employer] WHO IS GOING TO BRING IT UP TO ADMINISTER.
[2022-04-15 23:20] VITALS: BP 116/61; PULSE 77; TEMP 97.9
[2022-04-16] VITALS (7 sets, daily range): BP systolic 109–121; BP diastolic 52–61; PULSE 72–76; TEMP 97.6–98.7
--- NOTE | 2022-04-16 05:48 | NUR ---
PT HAD UNEVENTFUL NIGHT. SHE DID SIT UP ALL NIGHT LONG AND HAD A DIFFICULT TIME FALLING ASLEEP. NO OTHER COCNERNS AT THIS TIME.
--- NOTE | 2022-04-16 08:00 | NUR ---
Patient sitting up in bed, A&Ox4. VSS. IV CDI. Pollack intact. Heels floated. Reports pain in legs/feet. Pain medication given as requested. Seizure precautions in place. Call light within reach
--- NOTE | 2022-04-16 11:36 | NUR ---
SW met with patient to complete intake. Patient provides that she lives at [facility] and obtains all assistance from staff at facility. PCP is Dr. Buchanan, and pharmacy was not recalled. DPOA is Derek Hall [phone] and Shivam Hall [phone]. Patient plans to return back to [facility] upon DC. SW will continue to follow. DC plan: back to [facility]
[2022-04-16 13:45] LABS: HEMATOCRIT 38.9 % (37.0-47.0); HEMOGLOBIN 12.3 g/dl (12.5-16.0); MEAN CELL VOLUME 89 fl (80.0-100.0); MEAN CORPUSCULAR HEMOGLOBIN 28 pg (27-31); MEAN CORPUSCULAR HGB CONC 32 g/dl (33.0-37.0); MEAN PLATELET VOLUME 11.5 fl (7.4-10.4); PLATELET COUNT 250 K/mm3 (130-400); RED BLOOD COUNT 4.37 M/mm3 (4.10-5.30); REDCELL DISTRIBUTION WIDTH-CV 15.5 % (11.5-14.5)
[2022-04-16 14:08] LABS: BAND 2 % (0-10); EOSINOPHIL 4 % (0-4); LYMPHOCYTE 16 % (20.0-51.0); NEUTROPHILS 70 % (42.0-75.2); PLATELET ESTIMATE NORMAL (NORMAL)
[2022-04-16 14:09] LABS: HYPOCHROMIA 2+
[2022-04-17] VITALS (8 sets, daily range): BP systolic 108–131; BP diastolic 57–70; PULSE 56–77; TEMP 97.6–98.5
[2022-04-17 06:29] LABS: BASO % 0.5 % (0.0-2.0); EOS # 0.2 K/mm3 (0.0-0.7); EOS % 2.6 % (0.0-4.0); GRAN # 4.6 K/mm3 (1.4-6.5); GRAN % 73.3 % (42.2-75.2); HEMATOCRIT 38.4 % (37.0-47.0); HEMOGLOBIN 12.3 g/dl (12.5-16.0); LYMPH % 15.3 % (20.0-51.0); MEAN CELL VOLUME 89 fl (80.0-100.0); MEAN CORPUSCULAR HEMOGLOBIN 28 pg (27-31); MEAN CORPUSCULAR HGB CONC 32 g/dl (33.0-37.0); MEAN PLATELET VOLUME 11.6 fl (7.4-10.4); MONO # 0.5 K/mm3 (0.1-0.6); MONO % 8.1 % (1.7-9.3); PLATELET COUNT 239 K/mm3 (130-400); RED BLOOD COUNT 4.33 M/mm3 (4.10-5.30); REDCELL DISTRIBUTION WIDTH-CV 15.6 % (11.5-14.5)
[2022-04-17 06:58] LABS: CALCIUM 8.8 mg/dL (8.4-10.2); CREATININE, serum 0.81 mg/dL (0.57-1.11); POTASSIUM 3.8 mmol/L (3.5-4.5)
--- NOTE | 2022-04-17 09:16 | NUR ---
Initial visit; Patient seems to be weak and frail. Yancy was receptive to prayer and smiled as Cheese Tester prayed and wished her well. Cheese Tester will keep Yancy in her prayers and will follow up while she is a patient here.
--- NOTE | 2022-04-17 10:20 | NUR ---
Assessment complete. A/O x4. Tele reading SR.
--- NOTE | 2022-04-17 11:11 | NUR ---
Morphine 2mg administered IVP for c/o bilateral knee pain. Pt rates pain 8/10.
--- NOTE | 2022-04-17 12:05 | NUR ---
Pt still c/o bilateral knee pain, rating 8/10. [place] administered po for c/o pain.
--- NOTE | 2022-04-17 14:40 | NUR ---
Order for PICC receieved over weekend; [facility] service is M-F 7:30-4, this RN checked with primary nurse who stated patient may no longer need the PICC line at this time as she has 2 PIVs that are working well and the provider oes not feel she will need it anymore. Will attend to patient if needs change
--- NOTE | 2022-04-17 14:57 | NUR ---
Clinical updates sent to Mitch at [facility]
--- NOTE | 2022-04-17 18:36 | NUR ---
No change since am assessment. Pt reports pain 3/10 on pain scale to BLE. Denies needs at this time. Visitor at bedside.
[2022-04-18 02:34] VITALS: BP 109/59; PULSE 54; TEMP 98.7
[2022-04-18 06:40] LABS: BASO % 0.2 % (0.0-2.0); EOS # 0.2 K/mm3 (0.0-0.7); EOS % 3.9 % (0.0-4.0); GRAN # 3.9 K/mm3 (1.4-6.5); GRAN % 66.8 % (42.2-75.2); HEMATOCRIT 39.1 % (37.0-47.0); LYMPH # 1.2 K/mm3 (1.2-3.4); LYMPH % 20.2 % (20.0-51.0); MEAN CELL VOLUME 91 fl (80.0-100.0); MEAN CORPUSCULAR HEMOGLOBIN 28 pg (27-31); MEAN CORPUSCULAR HGB CONC 31 g/dl (33.0-37.0); MEAN PLATELET VOLUME 12.3 fl (7.4-10.4); MONO # 0.5 K/mm3 (0.1-0.6); MONO % 8.7 % (1.7-9.3); PLATELET COUNT 234 K/mm3 (130-400); RED BLOOD COUNT 4.29 M/mm3 (4.10-5.30); REDCELL DISTRIBUTION WIDTH-CV 15.8 % (11.5-14.5)
[2022-04-18 07:02] LABS: CALCIUM 8.8 mg/dL (8.4-10.2); CREATININE, serum 0.79 mg/dL (0.57-1.11); POTASSIUM 3.7 mmol/L (3.5-4.5)
[2022-04-18 08:03] VITALS: BP 126/69; PULSE 58; TEMP 97.5
--- NOTE | 2022-04-18 08:41 | NUR ---
SHIFT ASSESSMENT COMPLETED AND MORNING MEDICATIONS ADMINISTERED PER ORDER. PATIENT IS ALERT AND ORIENTED X4. C/O MODERATE PAIN TO LLE, WILL TREAT WITH PRN PAIN MEDICATION. ALERT BUT PARTIALLY ORIENTED, WHICH IS PATIENT'S BASELINE. BLE RED IN COLOR AND PAINFUL TO TOUCH. DENIES ANY NEEDS AT THIS TIME. CALL LIGHT WITHIN REACH.
[2022-04-18] MEDS ORDERED: PHENERGAN 25 TA25 MG PO (08:53)
[2022-04-18] MEDS ORDERED: OMNICEF 300MG300 MG PO (08:54)
[2022-04-18] MEDS ORDERED: ELIQUIS 5MG PO (08:55)
[2022-04-18] MEDS ORDERED: NORCO 325 MG-51 TAB PO (08:56)
[2022-04-18] MEDS ORDERED: TYLENOL 325MG325 MG PO (08:56)
[2022-04-18] MEDS ORDERED: ALDACTONE 25MG25 M1 PO (08:56)
[2022-04-18] MEDS ORDERED: KEPPRA1000 MG PO (08:57)
[2022-04-18] MEDS ORDERED: DILANTIN 100MG100 MG PO (08:57)
[2022-04-18] MEDS ORDERED: DILANTIN KAPSEA30 MG PO (08:57)
[2022-04-18] MEDS ORDERED: CELEXA10 MG PO (08:58)
[2022-04-18] MEDS ORDERED: SALINE 45 ML45 ML NS (08:59)
[2022-04-18] MEDS ORDERED: PEPCID 20MG TAB20 MG PO (08:59)
[2022-04-18] MEDS ORDERED: UBRELVY50 MG PO (08:59)
[2022-04-18] MEDS ORDERED: SYNTHROID 0.10.15 MG PO ×2 (09:00)
[2022-04-18] MEDS ORDERED: NYSTATIN POWDER15 GM TOP (09:02)
[2022-04-18] MEDS ORDERED: VITAMINC1000TA PO (09:03)
[2022-04-18] MEDS ORDERED: VITAMIN D31000 I1 PO (09:04)
[2022-04-18 10:58] VITALS: BP 126/69; PULSE 58; TEMP 97.5
--- NOTE | 2022-04-18 12:02 | NUR ---
PATIENT DISCHARGED PER ORDER. REPORT GIVEN TO ARI NURSE AT [facility]. DENIES ANY PAIN OR NEEDS AT THIS TIME. IV TO LEFT AND RIGHT FOREARMS REMOVED WITH CATHETERS INTACT, NO BLEEDING NOTED, GAUZE DRESSING APPLIED. PERICARE PROVIDED PRIOR TO DISCHARGE, PERSONAL BELONGINGS SENT WITH PATIENT.
--- NOTE | 2022-04-18 12:20 | NUR ---
Hand Compositor attended clinical rounds with the team and patient is ready for discharge back to [facility]. BRANDI met with patient who is agreeable to this plan. BRANDI contacted patient's DPOA-HC, Derek to notify him of discharge. BRANDI reviewed IM over the phone with Derek who verbalized understanding and gave verbal consent as signature. BRANDI placed form in chart and provided copy in patient's discharge folder which will return with her to [facility]. BRANDI faxed discharge orders and updates to Mitch at [facility]. Transport time set for 1130. Discharge Plan: [facility] SNF
--- NOTE | 2022-04-19 09:42 | NUR ---
SUSIE to d/c PICC line order rec'd from Dr. Saeed on 04/17.
== END 2022-04-18 12:00 | DRG 603 ==
LOC: COL.ER 11:27 → MEDICAL 13:44
PROVIDERS: Family Medicine; Physician Assistant; ADMIT Student in an Organized Health Care Education/Training Program
DX: L03.116 Cellulitis of left lower limb (principal); F79 Unspecified intellectual disabilities; L03.115 Cellulitis of right lower limb; G40.909 Epilepsy, unspecified, not intractable, without status epilepticus; I10 Essential (primary) hypertension; F32.A Depression, unspecified; N32.81 Overactive bladder; K21.9 Gastro-esophageal reflux disease without esophagitis; E03.9 Hypothyroidism, unspecified; I89.0 Lymphedema, not elsewhere classified; Z90.710 Acquired absence of both cervix and uterus; Z90.49 Acquired absence of other specified parts of digestive tract; Z88.0 Allergy status to penicillin; Z98.84 Bariatric surgery status; Z79.01 Long term (current) use of anticoagulants; Z79.890 Hormone replacement therapy; Z86.718 Personal history of other venous thrombosis and embolism; Z23 Encounter for immunization
CPT/HCPCS: J0692; J2270; J7030

== ENCOUNTER 2022-05-27 10:05 | Emergency (ER) | payer MEDICARE, MEDICAID ==
[~2022-05-27] VITALS: Ht 165.1 cm; Wt 109.1 kg
[~2022-05-27 10:05] MED LIST changes: +DILANTIN KAPSEA30 MG PO; +K-TAB20 PO; +KEPPRA1000 MG PO; +NYSTATIN POWDER15 GM TOP; +PEPCID 20MG TAB20 MG PO; +PHENERGAN 25 TA25 MG PO; +SALINE 45 ML45 ML NS; +SYNTHROID 0.10.15 MG PO; +UBRELVY50 MG PO; +VITAMINC1000TA PO
[2022-05-27 10:25] LABS: BASO % 0.6 % (0.0-2.0); EOS # 0.2 K/mm3 (0.0-0.7); EOS % 2.5 % (0.0-4.0); GRAN # 4.8 K/mm3 (1.4-6.5); GRAN % 70.6 % (42.2-75.2); HEMATOCRIT 44.6 % (37.0-47.0); HEMOGLOBIN 13.7 g/dl (12.5-16.0); LYMPH # 1.2 K/mm3 (1.2-3.4); LYMPH % 17.4 % (20.0-51.0); MEAN CELL VOLUME 91 fl (80.0-100.0); MEAN CORPUSCULAR HEMOGLOBIN 28 pg (27-31); MEAN CORPUSCULAR HGB CONC 31 g/dl (33.0-37.0); MEAN PLATELET VOLUME 11.1 fl (7.4-10.4); MONO # 0.6 K/mm3 (0.1-0.6); MONO % 8.6 % (1.7-9.3); PLATELET COUNT 270 K/mm3 (130-400); RED BLOOD COUNT 4.88 M/mm3 (4.10-5.30)
[2022-05-27 10:54] LABS: ALANINE AMINOTRANSFERASE 25 U/L (0-55); ALBUMIN 3.8 gm/dL (3.5-5.0); ALKALINE PHOSPHATASE 178 U/L (40-150); ANION GAP 12 mmol/L (7-16); AST,SGOT 22 U/L (5-34); BILIRUBIN,TOTAL 0.4 mg/dL (0.2-1.2); BLOOD UREA NITROGEN 16 mg/dL (10-20); CALCIUM 9.7 mg/dL (8.4-10.2); CARBON DIOXIDE 21 mmol/L (22-29); CHLORIDE 108 mmol/L (98-107); CREATININE, serum 0.94 mg/dL (0.57-1.11); GLUCOSE 94 mg/dL (70-99); POTASSIUM 4.3 mmol/L (3.5-4.5); SODIUM 141 mmol/L (136-145); TOTAL PROTEIN 8.1 gm/dL (6.2-8.1)
[2022-05-27 11:09] LABS: TROPONIN-I < 0.010 ng/mL (0.00-0.033)
[2022-05-27 14:51] VITALS: BP 114/97; PULSE 67; TEMP 97.1
== END 2022-05-27 14:51 | disposition home or self-care (01) ==
LOC: COL.ER 10:05
PROVIDERS: Emergency Medicine
DX: R07.9 Chest pain, unspecified (principal); I10 Essential (primary) hypertension; Z79.01 Long term (current) use of anticoagulants
CPT/HCPCS: J2270

== ENCOUNTER → 2023-06-07 | Outpatient (CLI) | payer MEDICARE ==
[~2023-06-07] MED LIST changes: +CEFTIN500 MG PO
== END ==
LOC: MC.RAD 10:07
DX: Z12.31 Encounter for screening mammogram for malignant neoplasm of breast (principal)

== ENCOUNTER 2023-10-09 15:50 | Inpatient (IN) | payer MEDICARE, MEDICAID ==
[2023-10-09] VITALS (173 sets, daily range): BP systolic 80–91; BP diastolic 48–61; PULSE 82–83; TEMP 98.5; O2SAT 94–98
[~2023-10-09] VITALS: Ht 170.2 cm; Wt 120.5 kg
[2023-10-09] MEDS ORDERED: LR 1,000 ML IV ONE ×2 (16:00→18:45)
[2023-10-09] MEDS ORDERED: Ondansetron 4 MG/2 ML VIAL IV ONE (16:00)
[2023-10-09] MEDS ORDERED: NS 1,000 ML IV ONE (16:30)
[2023-10-09 16:49] LABS: COLLECTION METHOD IN
[2023-10-09 17:02] LABS: HEMATOCRIT 47.2 % (37.0-47.0); MEAN CELL VOLUME 87 fl (80.0-100.0); MEAN CORPUSCULAR HEMOGLOBIN 28 pg (27-31); MEAN CORPUSCULAR HGB CONC 32 g/dl (33.0-37.0); MEAN PLATELET VOLUME 11.7 fl (7.4-10.4); PLATELET COUNT 301 K/mm3 (130-400); RED BLOOD COUNT 5.45 M/mm3 (4.10-5.30); REDCELL DISTRIBUTION WIDTH-CV 15.5 % (11.5-14.5)
[2023-10-09 17:06] LABS: URINE APPEARANCE TURBID (CLEAR/HAZY); URINE BLOOD 3+ (NEGATIVE); URINE COLOR Dark Yellow (YELLOW); URINE GLUCOSE NEGATIVE (NEGATIVE); URINE KETONE NEGATIVE (NEGATIVE); URINE NITRATE NEGATIVE (NEGATIVE); URINE PROTEIN(semi-quant) 1+ (NEGATIVE)
[2023-10-09 17:20] LABS: ALANINE AMINOTRANSFERASE 50 U/L (0-55); ALBUMIN 2.3 g/dL (3.5-5.0); ALKALINE PHOSPHATASE 186 U/L (40-150); ANION GAP 15 mmol/L (7-16); AST,SGOT 25 U/L (5-34); BILIRUBIN,TOTAL 1.2 mg/dL (0.2-1.2); BLOOD UREA NITROGEN 44 mg/dL (10-20); CALCIUM 9.3 mg/dL (8.4-10.2); CHLORIDE 102 mEq/L (98-107); CREATININE, serum 1.31 mg/dL (0.57-1.11); GLUCOSE 102 mg/dL (70-99); POTASSIUM 3.8 mEq/L (3.5-4.5); SODIUM 135 mEq/L (136-145); TOTAL PROTEIN 6.6 g/dl (6.2-8.1)
[2023-10-09 17:21] LABS: C-REACTIVE PROTEIN 48.22 mg/dL (0.00-0.50); LIPASE < 7 U/L (8-78)
[2023-10-09 17:28] LABS: LYMPHOCYTE 1 % (20.0-51.0); NEUTROPHILS 94 % (42.0-75.2)
[2023-10-09 17:37] LABS: AMORPHOUS CRYSTAL PRESENT (NOT PRESENT); BUDDING YEAST PRESENT (NOT PRESENT); MUCOUS PRESENT (NOT PRESENT); SQUAMOUS EPITHELIAL 0-2 /hpf (0-10); URINE BACTERIA MANY /hpf (NONE SEEN); URINE RBC >50 /hpf (0-2); URINE WBC 20-50 /hpf (0-2)
[2023-10-09] MEDS ORDERED: Morphine 4 MG/ML VIAL IV ONE (17:45)
[2023-10-09] MEDS ORDERED: Iohexol 300 - 100 ML VIAL IV ONE (18:17)
[2023-10-09] MEDS ORDERED: NS 100 ML IV ONE (18:18)
[2023-10-09] MEDS ORDERED: ABILIFY5 MG PO (19:27)
[2023-10-09] MEDS ORDERED: ZOLOFT 100MG100 MG PO (19:29)
[2023-10-09] MEDS ORDERED: metroNIDAZOLE 100 ML IV SCH (19:30)
[2023-10-09] MEDS ORDERED: Acetaminophen 325 MG TAB PO PRN ×2 (19:30→19:45)
[2023-10-09] MEDS ORDERED: Albuterol/Ipratropium 3 MG-0.5 MG/3 ML Neb Soln IH PRN (19:30)
[2023-10-09] MEDS ORDERED: Morphine 4 MG/ML VIAL IV PRN (19:30)
[2023-10-09] MEDS ORDERED: MELATIN 3 MG-11 TAB PO (19:31)
[2023-10-09] MEDS ORDERED: ALL DAY ALLERGY10 M3 PO (19:32)
[2023-10-09] MEDS ORDERED: NS 500 ML IV ONE (19:45)
[2023-10-09] MEDS ORDERED: Ondansetron 4 MG/2 ML VIAL IV PRN (19:45)
[2023-10-09] MEDS ORDERED: NS 1,000 ML IV SCH ×2 (19:45)
[2023-10-09] MEDS ORDERED: Heparin 5,000 UNITS/ML 1 ML VIAL SQ SCH (20:00)
[2023-10-09] MEDS ORDERED: Cefepime 1 G in Water For Injection,Sterile 10 ML IV SCH (20:00)
[2023-10-09] MEDS ORDERED: levETIRAcetam 500 MG TAB PO SCH (21:00)
[2023-10-09] MEDS ORDERED: VITAMIN D 50,1.25 MG PO (22:05)
[2023-10-09] MEDS ORDERED: TYLENOL 325MG325 MG PO (22:08)
[2023-10-09] MEDS ORDERED: ZOFRAN 4MG T4 MG/TAB PO (22:11)
--- NOTE | 2023-10-09 23:59 | NUR ---
B/P CONSTANTLY BEING A MEAN OF 65 OR LESS. PATIENT DENIES DISCOMFORT, NOREPI IV INFUSION BEGINS
[2023-10-10] VITALS (1296 sets, daily range): BP systolic 78–132; BP diastolic 42–70; PULSE 61–90; TEMP 98.2–99.4; O2SAT 79–100
[2023-10-10 04:47] LABS: BASO % 0.2 % (0.0-2.0); EOS % 0.1 % (0.0-4.0); GRAN # 15.8 K/mm3 (1.4-6.5); GRAN % 90.1 % (42.2-75.2); HEMATOCRIT 40.8 % (37.0-47.0); HEMOGLOBIN 13.3 g/dl (12.5-16.0); LYMPH # 0.6 K/mm3 (1.2-3.4); LYMPH % 3.5 % (20.0-51.0); MEAN CELL VOLUME 87 fl (80.0-100.0); MEAN CORPUSCULAR HEMOGLOBIN 28 pg (27-31); MEAN CORPUSCULAR HGB CONC 33 g/dl (33.0-37.0); MONO % 5.8 % (1.7-9.3); PLATELET COUNT 278 K/mm3 (130-400); RED BLOOD COUNT 4.68 M/mm3 (4.10-5.30); REDCELL DISTRIBUTION WIDTH-CV 15.4 % (11.5-14.5)
[2023-10-10 05:08] LABS: BILIRUBIN,TOTAL 0.9 mg/dL (0.2-1.2); CALCIUM 8.8 mg/dL (8.4-10.2); CREATININE, serum 0.93 mg/dL (0.57-1.11); POTASSIUM 3.5 mEq/L (3.5-4.5)
[2023-10-10] MEDS ORDERED: *Potassium Replacement Protocol MC SCH (05:15)
[2023-10-10] MEDS ORDERED: Potassium Chloride 100 ML IV SCH (05:15)
[2023-10-10 07:39] LABS: INR 2.5 (0.8-3.0); PROTHROMBIN TIME 27.2 SECONDS (9.7-12.8)
--- NOTE | 2023-10-10 07:45 | NUR ---
Patient awake and alert. Can be heard talking out loud to herself and occasionally yelling out loud when nobody is in the room. Patient can answer some simple questions and follow commands appropriately. While performing an assessment patient would yell "0w" or "that hurts" even with the lightest of touches or even before this nurse would touch the patient. Excoration noted under bilateral breasts and area cleansed and inter-dry cloth was placed. Assisted with repositioning and skinny-care. Call light left within reach.
[2023-10-10] MEDS ORDERED: Sertraline 100 MG TAB PO SCH (09:00)
[2023-10-10] MEDS ORDERED: ARIPiprazole 5 MG TAB PO SCH (09:00)
[2023-10-10] MEDS ORDERED: Miconazole 2% Topical Powder BOTTLE TP SCH (09:00)
[2023-10-10] MEDS ORDERED: NS IV ONE (11:30)
[2023-10-10] MEDS ORDERED: PHYTONADIONE IV ONE (11:30)
[2023-10-10] MEDS ORDERED: [UNRECOGNIZED DRUG - OTHER] IV ONE (11:30)
--- NOTE | 2023-10-10 12:46 | NUR ---
Called Dr. Pittman and left message with special service officer for patient to call patient's DPOA to obtain consent for scheduled CT guided drain placememt 10/11/23. DPOA's phone number and name provided.
--- NOTE | 2023-10-10 12:55 | NUR ---
Material Handler Loader contacted patient's DPOA-HC, Derek (ph#[phone]) to complete initial intake as patient is not currently oriented and has a intellectual disability. Patient lives at [facility] and sees Dr. Purvis for primary care. Patient needs assistance with ADLS and Derek advised he believes patient mostly uses a wheelchair for ambulation. Patient has DPOA in EMR designating Derek, then with Sebastien and Shivam listed as alternates. BRANDI contacted Mitch at [facility] and sent clinical updates via secure email. Discharge Plan: [facility]
--- NOTE | 2023-10-10 12:55 | NUR ---
Data: A man in an orange shirt was leaving the room as Print Color Operator was entering the room. Print Color Operator notice that Patient was crying. Patient was not clear about the reason she was crying. Unable to pinpoint if it was anything to do with the visitor. Patient accepted a spiritual care visit. Patient enjoys country music. Assessment: Patient is scared and lonely. Patient is grateful for the ICU bed because it is much more comfortable than her bed at [facility]. Plan of Care: Print Color Operator provided supportive listening, prayer, and music. Patient was smiling and chatty by the end of the visit. Chaplains will remain available as needed/requested while Patient is admitted to this hospital.
[2023-10-11] VITALS (515 sets, daily range): BP systolic 89–110; BP diastolic 53–69; PULSE 66–75; TEMP 97.6–98.9; O2SAT 75–99
[2023-10-11 05:22] LABS: BASO % 0.3 % (0.0-2.0); EOS # 0.1 K/mm3 (0.0-0.7); EOS % 0.8 % (0.0-4.0); GRAN # 10.1 K/mm3 (1.4-6.5); GRAN % 85.2 % (42.2-75.2); HEMATOCRIT 39.7 % (37.0-47.0); HEMOGLOBIN 12.6 g/dl (12.5-16.0); LYMPH # 0.7 K/mm3 (1.2-3.4); MEAN CELL VOLUME 86 fl (80.0-100.0); MEAN CORPUSCULAR HEMOGLOBIN 27 pg (27-31); MEAN CORPUSCULAR HGB CONC 32 g/dl (33.0-37.0); MEAN PLATELET VOLUME 11.2 fl (7.4-10.4); MONO # 0.9 K/mm3 (0.1-0.6); MONO % 7.4 % (1.7-9.3); PLATELET COUNT 315 K/mm3 (130-400); RED BLOOD COUNT 4.61 M/mm3 (4.10-5.30); REDCELL DISTRIBUTION WIDTH-CV 15.4 % (11.5-14.5)
[2023-10-11 05:28] LABS: INR 1.8 (0.8-3.0); PROTHROMBIN TIME 19.2 SECONDS (9.7-12.8)
[2023-10-11 05:42] LABS: ALBUMIN 1.8 g/dL (3.5-5.0); BILIRUBIN,TOTAL 0.9 mg/dL (0.2-1.2); CREATININE, serum 0.68 mg/dL (0.57-1.11); POTASSIUM 3.4 mEq/L (3.5-4.5); TOTAL PROTEIN 5.8 g/dl (6.2-8.1)
[2023-10-11] MEDS ORDERED: Potassium Chloride 100 ML IV SCH (06:30)
--- NOTE | 2023-10-11 08:54 | NUR ---
Pt resting in bed. Pt verbalized difficulty sleeping last night. VSS. Pt verbalized need to be cleaned up. Gown changed. Pollack catheter care completed. IV sites infusing without difficulty. Pt stated "I feel much better" after being cleaned up with a new gown. Morning medications administered without difficulty. Pt does not have any further complaints at this time. Visitor "Javi" at bedside spending time with pt. Radiology phyisician stopped at nurses desk to discuss plan of care for the day.
[2023-10-11] MEDS ORDERED: ELDERBERRY PO (09:50)
[2023-10-11] MEDS ORDERED: Sertraline 100 MG TAB PO ONE (10:15)
[2023-10-11] MEDS ORDERED: [UNRECOGNIZED DRUG - OTHER] IV ONE (12:45)
[2023-10-11] MEDS ORDERED: NS IV ONE (12:45)
[2023-10-11] MEDS ORDERED: PHYTONADIONE IV ONE (12:45)
[2023-10-11 12:55] LABS: INR 1.7 (0.8-3.0); PROTHROMBIN TIME 18.5 SECONDS (9.7-12.8)
--- NOTE | 2023-10-11 17:07 | NUR ---
Pt has been resting in bed without any complaints of pain or discomfort. Dr. Pittman to bedside this morning to check on pt. Dr. Nina to bedside today. Dr. Nina has the CT assisted tube placement procedure scheduled for tomorrow mid-morning. Pt does not have any questions or complaints at this time.
--- NOTE | 2023-10-11 21:23 | NUR ---
PLAN FOR POSSIBLE CT GUIDED DRAIN PLACEMENT ON 10/11. PROVIDER NEEDS TO SPEAK WITH DPOA FOR CONSENT. PT IS BASELINE DEVELOPMENTALLY DELAYED. NPO PAST MIDNIGHT FOR PROCEDURE.
[2023-10-12] VITALS (711 sets, daily range): BP systolic 91–111; BP diastolic 41–59; PULSE 64–76; TEMP 97.8–98; O2SAT 88–99
[2023-10-12 04:43] LABS: BASO % 0.5 % (0.0-2.0); EOS # 0.2 K/mm3 (0.0-0.7); EOS % 2.1 % (0.0-4.0); GRAN # 7.2 K/mm3 (1.4-6.5); GRAN % 81.4 % (42.2-75.2); HEMOGLOBIN 11.3 g/dl (12.5-16.0); LYMPH # 0.8 K/mm3 (1.2-3.4); LYMPH % 9.5 % (20.0-51.0); MEAN CELL VOLUME 88 fl (80.0-100.0); MEAN CORPUSCULAR HEMOGLOBIN 28 pg (27-31); MEAN CORPUSCULAR HGB CONC 32 g/dl (33.0-37.0); MEAN PLATELET VOLUME 11.1 fl (7.4-10.4); MONO # 0.6 K/mm3 (0.1-0.6); MONO % 6.3 % (1.7-9.3); PLATELET COUNT 308 K/mm3 (130-400); RED BLOOD COUNT 4.03 M/mm3 (4.10-5.30); REDCELL DISTRIBUTION WIDTH-CV 15.6 % (11.5-14.5)
[2023-10-12 04:50] LABS: HEMATOCRIT 35.6 % (37.0-47.0)
[2023-10-12 05:01] LABS: ALBUMIN 1.7 g/dL (3.5-5.0); BILIRUBIN,TOTAL 0.6 mg/dL (0.2-1.2); CALCIUM 8.5 mg/dL (8.4-10.2); CREATININE, serum 0.57 mg/dL (0.57-1.11); POTASSIUM 3.4 mEq/L (3.5-4.5); TOTAL PROTEIN 5.1 g/dl (6.2-8.1)
[2023-10-12 05:16] LABS: INR 1.5 (0.8-3.0); PROTHROMBIN TIME 16.2 SECONDS (9.7-12.8)
[2023-10-12] MEDS ORDERED: Potassium Chloride 100 ML IV SCH (05:45)
--- NOTE | 2023-10-12 06:45 | NUR ---
PT NPO AFTER MIDNIGHT. TURNED Q 2HR. METZGER TO DD, NO DEPENDENT LOOPS, BAG OFF THE FLOOR, CATH SECURE IN PLACE. REMAINS STABLE ON ROUNDS. RESPIRATIONS EVEN AND UNLABORED. NO SIGN OF DISTRESS AT THIS TIME.
--- NOTE | 2023-10-12 08:15 | NUR ---
Patient awake and resting in bed; alert and oriented per baseline. VS stable at this time. Assisted with repositioning and elevation of extremities per patient request. Patient is very vocal when touched and will often yell oww! when lightly touched or not even touched at all. Call light left within reach.
--- NOTE | 2023-10-12 08:48 | NUR ---
retail salesworker sent clinical updates, securely, to [facility].
[2023-10-12] MEDS ORDERED: Sertraline 100 MG TAB PO SCH (09:00)
[2023-10-12] MEDS ORDERED: LR 1,000 ML IV SCH (09:30)
[2023-10-12] MEDS ORDERED: Lidocaine PF 2% (20 MG/ML) 5 ML VIAL ONE (10:37)
[2023-10-12] MEDS ORDERED: fentaNYL 50 MCG/ML 2 ML VIAL ONE (10:38)
[2023-10-12] MEDS ORDERED: ePHEDrine 50 MG/ML VIAL ONE (11:44)
--- NOTE | 2023-10-12 17:00 | NUR ---
Per Dr. Pittman will not restart eliquis at this time but can advance diet. Receiving RN notified.
--- NOTE | 2023-10-12 17:00 | NUR ---
PT ON FLOOR FROM ICU VIA BED. PT ORIENTED TO ROOM AND REORIENTED NEEDED. METZGER PATENT AND DRAINING WITHOUT ISSUES. CONTACT PRECAUTIONS IN PLACE. CHOLECYSTOSTOMY TUBE IN PLACE WITH STAT LOCK WITH DRAINAGE BAG, DARK RED BLOOD NOTED IN BAG. PT DENIES PAIN OR NEEDS AT THIS TIME. BED IN LOWEST POSITION, CALL LIGHT IN REACH, BED ALARM ON
[2023-10-13 04:06] VITALS: BP 104/55; PULSE 67; TEMP 97.9
[2023-10-13 07:08] VITALS: BP 110/55; PULSE 60; TEMP 97.7
--- NOTE | 2023-10-13 07:55 | NUR ---
PER PCT PTS BLOOD PRESSURE 81/44 AFTER MULTIPLE ATTEMPTS. THIS RN TOOK MANUAL BP OF 110/55 ON LEFT UPPER ARM. PT ASYMPTOMATIC AND DENIES NEEDS. BED IN LOWEST POSITION, BED ALARM ON, CALL LIGHT IN REACH
--- NOTE | 2023-10-13 08:00 | NUR ---
PT AWAKE AND EATING BREAKFAST UPON ENTERING ROOM. SCHEDULED MEDS GIVEN PER eMAR. C/O OF SOME PAIN IN THE R FOREARM IV SITE. NO REDNESS, EDEMA, OR INFILTRATION NOTE. CAP REPLACED. DRAIN TO RUQ IN PLACE AND DRESSING IS CDI. NO OTHER CONCERNS. BED ALARM ON AND CALL LIGHT WITHIN REACH.
[2023-10-13 08:16] LABS: BASO % 0.5 % (0.0-2.0); EOS # 0.3 K/mm3 (0.0-0.7); EOS % 4.2 % (0.0-4.0); HEMATOCRIT 39.5 % (37.0-47.0); HEMOGLOBIN 12.3 g/dl (12.5-16.0); LYMPH # 1.1 K/mm3 (1.2-3.4); LYMPH % 13.2 % (20.0-51.0); MEAN CELL VOLUME 88 fl (80.0-100.0); MEAN CORPUSCULAR HEMOGLOBIN 27 pg (27-31); MEAN CORPUSCULAR HGB CONC 31 g/dl (33.0-37.0); MEAN PLATELET VOLUME 10.7 fl (7.4-10.4); MONO # 0.6 K/mm3 (0.1-0.6); MONO % 7.7 % (1.7-9.3); PLATELET COUNT 383 K/mm3 (130-400); RED BLOOD COUNT 4.49 M/mm3 (4.10-5.30); REDCELL DISTRIBUTION WIDTH-CV 15.7 % (11.5-14.5)
[2023-10-13 08:28] LABS: CREATININE, serum 0.59 mg/dL (0.57-1.11); POTASSIUM 3.7 mEq/L (3.5-4.5)
--- NOTE | 2023-10-13 11:09 | NUR ---
PT C/O PAIN BUT UNABLE TO LOCATE WHERE. REQUESTS ADVIL FOR PAIN RELIEF. PRN TYLENOL OFFERED AND GIVEN.
[2023-10-13 11:38] VITALS: BP 97/61; PULSE 67; TEMP 97.5
[2023-10-13 16:11] VITALS: BP 103/67; PULSE 68; TEMP 97.5
[2023-10-13 19:30] VITALS: BP 106/49; PULSE 76; TEMP 97.6
--- NOTE | 2023-10-13 20:26 | NUR ---
PT AWAKE AND ALERT, RESTING IN BED. AT START OF THE SHIFT PT WAS TURNED AND WILL CONTINUE TO BE ON TURNING SCHEDULE. FLAT SMOOTH REDDENED RASH NOTED TO UPPER LEFT CHEST THAT IS SPREADING SINCE LAST NIGHT, OUTLINED TO ASSESS FURTHER GROWTH. PROVIDER WILL BE NOTIFIED. ASSESSMENT COMPLETE, PT REFUSED TO HAVE IV SITES CHANGED, SHE IS SCARED OF NEEDLES, DISCUSSED WITH PARCEL POST OFFICER AND SHE IS OK TO LEAVE THE SITES IN PT WILL BE DC SOON AND THE SITES ARE CDI. PT DOESNT LIKE TO BE TOUCHED OR MOVED SO ADVANCE PERMISSION TO TOUCH HER EVEN LIGHTLY SHE WINCES AND CRIES. CAN BE VERY PLEASANT OR UPSET VERY EASILY, FREQUENT MOOD FLUCTUATION. ALL HS MEDS ADMINISTERED. PAIN SUKH ANY PAIN AT THIS TIME, SEEMS TO BE HAPPY WITH THE BOOTS PLACED TODAY TO PROTECT HER HEELS. T- TUBE TO UPPER RIGHT QUADRANT TO DEPENDENT DRAINAGE, DRAINING DARK RED FLUID, CDI. CALL LIGHT WITHIN REACH, FALL PRECAUTIONS IN PLACE.
[2023-10-13 23:28] VITALS: BP 96/51; PULSE 67; TEMP 97.8
[2023-10-14] VITALS (7 sets, daily range): BP systolic 91–122; BP diastolic 44–67; PULSE 63–75; TEMP 97.8–98.7
--- NOTE | 2023-10-14 09:00 | NUR ---
Assessment completed. Pt a/o x2. Oriented to self and . INT to RFA red and painful with flushing- d/c'd with cath tip intact. Excoration to underside of bilateral breast- desenex powder applied. Heel protectors on bilaterally. Refuses repositioning. Fall precautions in place. Seizure precautions in place. Contact precautions in place for history of MRSA to a wound. MRSA nares swab this admission negative. Denies pain or needs at this time.
[2023-10-14] MEDS ORDERED: Potassium Bicarbonate/Citrate 20 MEQ Effervescent TAB PO SCH (10:00)
--- NOTE | 2023-10-14 14:39 | NUR ---
Bedside report given to Izabel Campa RN.
--- NOTE | 2023-10-14 14:40 | NUR ---
BEDSIDE SHIFT REPORT RECIEVED FROM YOEL MARTE. THIS RN WILL TAKE OVER CARE OF THE PATIENT AT THIS TIME.
--- NOTE | 2023-10-14 19:30 | NUR ---
Assessment complete. Patient is alert and oriented to self only with develpmental delays. VS stable. Currently on RA. Denies nausea/shortness of breath. Reporting generalized achey pain-tylenol given per dr order. Pollack cath with clear yellow urine. Cholecystostomy tube in place-scant amount of reddish drainage present. Dressing CDI-gauze/medipore- Report from dayshift that there was no output to drain on their shift. Left forearm INT flushes without difficulty-no s/s of infiltration noted. Plan of care discussed for this shift to include meds/pain control/repositioning/calling for questions/concerns. Verbalizes understanding. Call light in reach/bed alarm on. Will monitor.
--- NOTE | 2023-10-14 21:00 | NUR ---
Cholecystostomy tube bag emptied at this time-4mls dark red fluid noted. Shawn triplett.
[2023-10-15] VITALS (8 sets, daily range): BP systolic 99–115; BP diastolic 45–68; PULSE 59–67; TEMP 97.6–97.8
--- NOTE | 2023-10-15 | NUR ---
Cholecystostomy tube noted to still have only a scant amount of drainage. This nurse milked the tubing as it appeared to have a clot in the end of the tube. Will monitor output.
--- NOTE | 2023-10-15 01:52 | NUR ---
Patient repositioned in bed with pillow support. Denies needs. Call light in reach. Will monitor.
[2023-10-15] MEDS ORDERED: LR 1,000 ML IV SCH (05:00)
--- NOTE | 2023-10-15 05:34 | NUR ---
Cholecystostomy tube emptied at this time-75mls of dark red fluid.
--- NOTE | 2023-10-15 06:30 | NUR ---
BEDSIDE REPORT RECIEVED AT THIS TIME.
--- NOTE | 2023-10-15 08:28 | NUR ---
SHIFT ASSESSMENT COMLPETED AT THIS TIME. PT A&OX2. PT REPORTS PAIN ON HER RIGHT SIDE WHERE THE TUBE IS PLACED. PT REPOSITIONED IN BED AND REPORTS PAIN RELIEVED. PT DENIES SOB AND NAUSEA. MORNING MEDICATIONS ADMINISTERED AT THIS TIME WITHOUT COMPLICATIONS. PT EATING BREAKFAST IN BED AT THIS TIME. PT HAS NO OTHER COMPLAINTS OR CONCERNS AT THIS TIME.
[2023-10-15] MEDS ORDERED: DESENEX TP (09:26)
[2023-10-15] MEDS ORDERED: Fluconazole 100 MG TAB PO ONE (09:45)
--- NOTE | 2023-10-15 13:09 | NUR ---
anode worker attended interdisciplinary clinical rounding with Dr. Conway. Patient is medically ready for discharge today. SW notified [facility] of patient being ready for discharge. SW Student faxed clinical updates and discharge orders to [facility]. BRANDI scheduled transportation for patient to [facility] today at 3 pm. BRANDI notified patient's nurse and community director. BRANDI contacted patient's DPOA-HC, Derek, and reviewed the important message from [employer]. Derek understood and provided verbal consent for the form. BRANDI made a copy, placed original in chart and provided copy to patient. Discharge plan: [facility] - Skilled
--- NOTE | 2023-10-15 16:24 | NUR ---
1300- DISCHARGE ORDERS RECIEVED. 1505- PT TRANSFERRED FROM BED TO WHEELCHAIR [facility]IA [facility]. PT ESCORTED VIA WHEELCHAIR BY [facility] STAFF TO VEHICLE TO RETURN TO [facility]. 1624- REPORT GIVEN TO [facility]. INEVERTENTLY LEFT INT INTACT AT DISCHARGE UNDER JEFFRY WRAP. WHEN REPORT WAS GIVEN TO [facility], THIS NURSE MADE [facility] STAFF AWARE THAT INT NEEDED DC'D. [facility] STAFF VOICED UNDERSTANDING.
== END 2023-10-15 15:05 | DRG 871 ==
LOC: COL.ER 15:50 → ICU 18:59 → MEDICAL 10-12 16:54
PROVIDERS: Family Medicine; Physician Assistant; Radiology Diagnostic Radiology; Surgery; ADMIT Internal Medicine
DX: A41.9 Sepsis, unspecified organism (principal); R65.21 Severe sepsis with septic shock; T83.511A Infection and inflammatory reaction due to indwelling urethral catheter, initial encounter; K82.A2 Perforation of gallbladder in cholecystitis; N17.9 Acute kidney failure, unspecified; E87.6 Hypokalemia; R56.9 Unspecified convulsions; F39 Unspecified mood [affective] disorder; Z86.718 Personal history of other venous thrombosis and embolism; Z79.01 Long term (current) use of anticoagulants
CPT/HCPCS: C1729; C1769; J0692; J1644; J1836; J1956; J2270; J2405; J2704; J3010; J3430; J3480; J7030; J7040; J7060; J7120; Q9967

== ENCOUNTER → 2023-11-06 | Outpatient (CLI) | payer MEDICARE, MEDICAID ==
[~2023-11-06] MED LIST changes: +ABILIFY5 MG PO; +ALL DAY ALLERGY10 M3 PO; +DESENEX TP; +ELDERBERRY PO; +Iohexol 300 - 100 ML VIAL IV ONE; +MELATIN 3 MG-11 TAB PO; +NS 100 ML IV SCH; +VITAMIN D 50,1.25 MG PO; +ZOFRAN 4MG T4 MG/TAB PO; +ZOLOFT 100MG100 MG PO
== END ==
LOC: COL.RAD 08:15
DX: K80.00 Calculus of gallbladder with acute cholecystitis without obstruction (principal); Z90.49 Acquired absence of other specified parts of digestive tract
CPT/HCPCS: Q9967